=== PATIENT | female | born 1970 | race Asian ===

== ENCOUNTER 2019-05-17 09:14 | Emergency (ER) | payer OTHER ==
[~2019-05-17] VITALS: Ht 147.3 cm; Wt 65.9 kg
[2019-05-17] MEDS ORDERED: KETOROLAC 30 MG/1 ML ONE (09:37)
[2019-05-17] MEDS ORDERED: ACETAMINOPHEN 500 MG TABLET ONE (09:37)
[2019-05-17] MEDS ORDERED: SODIUM CHLORIDE 0.9% 1,000ML IVBOLUS ONE (10:00)
[2019-05-17] MEDS ORDERED: ACETAMINOPHEN 500 MG TABLET PO ONE (10:00)
[2019-05-17] MEDS ORDERED: ONDANSETRON 2MG/ML, 2ML IVPush ONE (10:00)
[2019-05-17] MEDS ORDERED: KETOROLAC 30 MG/1 ML IVPush ONE (10:00)
[2019-05-17 10:11] LABS: RAPID INFLUENZA A Negative (Negative); RAPID INFLUENZA B Negative (Negative)
[2019-05-17 10:22] LABS: ALBUMIN 3.9 g/dL (3.4-5.0); ANION GAP 10 mmol/L (5-15); CALCIUM 8.7 mg/dL (8.5-10.1); CHLORIDE 104 mmol/L (98-107); CREATININE 1.03 mg/dL (0.55-1.02)
[2019-05-17 10:25] LABS: MD YES; MEAN CORPUSCULAR HEMOGLOBIN 29.5 pg (27.0-34.8); MEAN CORPUSCULAR HGB CONC 33.8 g/dL (32.4-35.8); MEAN CORPUSCULAR VOLUME 87.3 fL (80-100); MEAN PLATELET VOLUME 8.7 fL (7.4-10.4); PLATELET COUNT 97 x10^3/uL (130-400); RED BLOOD COUNT 5.24 x10^6/uL (3.82-5.3); RED CELL DISTRIBUTION WIDTH 13.3 % (9.6-15.2)
[2019-05-17] MEDS ORDERED: ONDANSETRON 2MG/ML, 2ML ONE (10:27)
[2019-05-17 10:35] LABS: <RBC MORPHOLOGY> NORMAL; BAND#(MANUAL) 0.26 x10^3/uL; BANDS%(MANUAL) 11 % (0-7); LYMPHS% (MANUAL) 21 % (22-44); MONOS#(MANUAL) 0.19 x10^3/uL (0.3-2.7); MONOS% (MANUAL) 8 % (2-9); SEG#(MANUAL) 1.44 x10^3/uL (1.8-6.8); SEGS% (MANUAL) 60 % (42-75)
[2019-05-17 10:36] LABS: <PLATELET ESTIMATE> DECREASED; <PLT MORPHOLOGY> NORMAL PLT MORPH
[2019-05-17 11:30] LABS: MICROSCOPIC AUTO
[2019-05-17 11:48] LABS: CULTURE INDICATED? YES
[2019-05-17 12:34] VITALS: BP 124/68
== END 2019-05-17 12:36 | disposition home or self-care (01) ==
LOC: ED 12:05
DX: R50.9 Fever, unspecified (principal); J15.9 Unspecified bacterial pneumonia; M79.10 Myalgia, unspecified site; I10 Essential (primary) hypertension
CPT/HCPCS: 36415; 71046; 80048; 81001; 82040; 83605; 84145; 85025; 87040; 87086; 87400; 93005; 96374; 96375; 99284; J1885; J2405; J7030